=== PATIENT | male | born 1975 | race Caucasian/White ===

== ENCOUNTER 2016-11-26 10:51 | Emergency (ER) | payer SELFPAY ==
[2016-11-26 10:55] VITALS: BP 127/70; BMI 20.9
--- NOTE | 2016-11-26 11:30 | DR.GENAD ---
HPI - PCP Primary Care Physician: JOAN - HPI Comment HPI Comment: PAIN WORSE TODAY AND URINE OUTPUT IS DECREASE TODAY ALSO. - Complaint/Symptoms Chief Complaint Doctors Comments: LEFT LEG AND LT BACK PAIN, OFF AND ON TIMES 3 WEEKS. Chief Complaint:: PT. C/O LEFT LEG BURNING THAT RADIATES UP TO LEFT SIDE OF BACK. PT. STATES THE PAIN BEGAN ABOUT 3 WEEKS AGO BUT WORSENED THIS MORNING. PT. STATES HE HAS NOT BEEN ABLE TO URINATE SINCE YESTERDAY. - Nurses notes reviewed Nurses Notes Review: Yes - Source History Provided: Patient - Mode of Arrival Mode of Arrival: Ambulatory - Timing Onset of Chief Complaint: 11/25/16 Came on: Suddenly - Duration Duration: Constant Duration: Days - Severity Severity: Moderate PMH - PMH Past Medical History: Yes Past Medical History: Kidney Stones Past Surgical History: No Surgical History: No History - Family History History of Family Medical Conditions: No - Social History Does patient currently use any type of tobacco product: Yes Have you used tobacco products in the last 12 months: Yes Type of Tobacco Use: Cigarettes Does any household member use tobacco: No Alcohol Use: None Do you use any recreational Drugs:: No Lives With: Family Lives Where: Home - infectious screening In the last 2 months have you had wt loss of >10#?: NO Have you had fever, night sweats or hemotysis?: No Have you traveled outside the country in the last 6 months?: No Isolation: Standard ROS - Review of Systems Constitutional: No Symptoms Reported Eyes: No Symptoms Reported ENTM: No Symptoms Reported Respiratoy: No Symptoms Reported Cardiovascular: No Symptoms Reported Gastrointestinal/Abdominal: No Symptoms Reported Genitourinary: Other (DECREASE URINE OUTPUT.). negative: Dysuria, Frequency, Hematuria Neurological: No Symptoms Reported Musculoskeletal: Back Pain (LT BACK PAIN), Left, Leg Integumentary: No Symptoms Reported Hematologic/Lymphatic: No Symptoms Reported Endocrine: No Symptoms Reported All Other Systems: Reviewed and Negative PE - Vital Signs Vitals: Temperature 98.5 F Pulse Rate 107 Respiratory Rate 20 Blood Pressure 127/70 O2 Sat by Pulse Oximetry 95 - General Limitations: No Limitations General Appearance: Alert - Head Head Exam: Normal Inspection - Eyes Eye exam: Normal Appearance - ENT ENT Exam: Normal External Ear Exam External Ear Exam: Normal External Inspection TM/Canal Exam: Bilateral Normal Nose Exam: Normal Nose Exam Mouth Exam: Normal Inspection Throat Exam: Normal Inspection - Neck Neck Exam: Normal Inspection - Chest Chest Inspection: Symmetric Chest Wall Rise - Respiratory Respiratory Exam: Normal Lung Sounds Bilat Respiratory Exam: Bilateral Clear to Auscultation - Cardiovascular Cardiovascular Exam: Regular Rate, Normal Rhythm, Normal Heart Sounds - Abdominal Exam Abdominal Exam: Normal Bowel Sounds, Soft. negative: Tenderness - Extremities Extremities Exam: Normal Inspection - Back Back Exam: Normal Inspection - Neurologic Neurological Exam: Alert, Oriented X3 - Psychiatric Psychiatric Exam: Normal Affect, Normal Mood - Skin Skin Exam: Normal Color MDM - Differential Diagnosis Differential Diagnosis: BACK PAIN, UTI, KIDNEY STONE Course - Treatment Treatment: SEE ORDERS. - Education/Counseling Education/Counseling: Patient, Education Educated On: Treatment, Diagnosis, Needs for Follow Up ROR - Labs Reviewed Laboratory Results Reviewed?: Yes Result Diagrams: 11/26/16 11:45 11/26/16 11:45 Laboratory: WBC 13.3 X10^3/uL (3.6-10.0) H 11/26/16 11:45 RBC 4.48 X10^6/uL (4.7-6.0) L 11/26/16 11:45 Hgb 13.6 g/dL (13.5-18.0) 11/26/16 11:45 Hct 39.8 % (42.0-54.0) L 11/26/16 11:45 MCV 88.8 fL (80.0-100.0) 11/26/16 11:45 MCH 30.4 pg (27.0-34.0) 11/26/16 11:45 MCHC 34.2 g/dL (33.0-35.0) 11/26/16 11:45 RDW 13.0 % (11.6-16.5) 11/26/16 11:45 Plt Count 253 X10^3/uL (150.0-450.0) 11/26/16 11:45 MPV 7.2 fL (7.4-11.0) L 11/26/16 11:45 Neut % 79.1 % (42.0-75.0) H 11/26/16 11:45 Lymph % 11.0 % (21.0-51.0) L 11/26/16 11:45 Concho % 8.2 % (0.0-13.0) 11/26/16 11:45 Eos % 1.3 % (0.9-2.9) 11/26/16 11:45 Baso % 0.4 % (0.2-1.0) 11/26/16 11:45 Neut # 10.5 x10^3/uL (2.2-4.8) H 11/26/16 11:45 Lymph # 1.5 X10^3/uL (1.3-2.9) 11/26/16 11:45 Concho # 1.1 x10^3/uL (0.3-0.8) H 11/26/16 11:45 Eos # 0.2 x10^3/uL (0.0-0.2) 11/26/16 11:45 Baso # 0.1 X10^3/uL (0.0-0.1) 11/26/16 11:45 Absolute Nucleated RBC 0.1 /100WBC 11/26/16 11:45 Sodium 137 mmol/L (136-145) 11/26/16 11:45 Corrected Sodium TNP 11/26/16 11:45 Potassium 4.2 mmol/L (3.5-5.1) 11/26/16 11:45 Chloride 102 mmol/L (98-107) 11/26/16 11:45 Carbon Dioxide 32.4 mmol/L (21-32) H 11/26/16 11:45 BUN 13 mg/dL (7-18) 11/26/16 11:45 Creatinine 0.80 mg/dL (0.70-1.30) 11/26/16 11:45 Est GFR (MDRD) Af Amer > 60 (>60) 11/26/16 11:45 Est GFR (MDRD) Non-Af > 60 (>60) 11/26/16 11:45 Glucose 96 mg/dL (65-99) 11/26/16 11:45 Calcium 9.2 mg/dL (8.5-10.1) 11/26/16 11:45 Corrected Calcium TNP 11/26/16 11:45 Total Bilirubin 0.40 mg/dL (0.2-1.0) 11/26/16 11:45 AST 56 Units/L (15-37) H 11/26/16 11:45 ALT 54 Units/L (12-78) 11/26/16 11:45 Alkaline Phosphatase 160 Units/L (46-116) H 11/26/16 11:45 Total Protein 7.7 g/dL (6.4-8.2) 11/26/16 11:45 Albumin 3.6 g/dL (3.4-5.0) 11/26/16 11:45 Globulin 4.1 g/dL (2.5-4.5) 11/26/16 11:45 Albumin/Globulin Ratio 0.9 Ratio (1.1-2.1) L 11/26/16 11:45 Specimen Type Clean catch urine 11/26/16 13:35 Urine Color Yellow (YELLOW) 11/26/16 13:35 Urine Appearance Clear (CLEAR) 11/26/16 13:35 Urine pH 7.0 (5.0 - 8.0) 11/26/16 13:35 Ur Specific Beemer 1.015 (1.000-1.030) 11/26/16 13:35 Urine Protein 1+ (NEGATIVE) 11/26/16 13:35 Urine Glucose (UA) Negative (NEGATIVE) 11/26/16 13:35 Urine Ketones Negative (NEGATIVE) 11/26/16 13:35 Urine Occult Blood 1+ (NEGATIVE) 11/26/16 13:35 Urine Nitrite Negative (NEGATIVE) 11/26/16 13:35 Urine Bilirubin Negative (NEGATIVE) 11/26/16 13:35 Urine Urobilinogen 1+ (NORMAL) 11/26/16 13:35 Ur Leukocyte Esterase Negative (NEGATIVE) 11/26/16 13:35 Urine RBC Rare /HPF (NEGATIVE) 11/26/16 13:35 Urine WBC None seen /HPF (NEGATIVE) 11/26/16 13:35 Ur Squamous Epith Cells Rare /HPF (NEGATIVE) 11/26/16 13:35 Amorphous Sediment 1+ /HPF (NEGATIVE) 11/26/16 13:35 Urine Bacteria Negative /HPF (NEGATIVE) 11/26/16 13:35 Urine Mucus Few /HPF (NEGATIVE) 11/26/16 13:35 Ur Culture Indicated? No/not indicated 11/26/16 13:35 - XRAY XRAY Interpreted by: Radiologist XRAY Findings: REPORT DICSUSS WITH PATIENT. - Diagnosis Discharge Problem: Pulmonary nodule, Kidney stone Back pain Qualifiers: Back pain location: low back pain Chronicity: acute Back pain laterality: left Sciatica presence: without sciatica Qualified Code(s): M54.5 - Low back pain - Discharge Plan Disposition: 01 HOME, SELF-CARE Condition: Stable Prescriptions: Magnesium Citrate [CITROMA LIQUID (MAG CITRATE) *] 296 ml PO ONCE #296 ml Sodium Phosphate,Concho-Dibasic [Fleet Enema Six Pack] 1 bottle TN ONCE #1 beverly Tramadol HCl 50 mg PO TID #15 tablet - Follow ups/Referrals Follow ups/Referrals: NFD,None [Primary Care Provider] - 3 days LEANDRA GEE [STAFF PHYSICIAN] - 3 days - Instructions Instructions: Kidney Stones, [id number], Pulmonary Nodule, [id number], Pelvic Mass, Constipation, Adult, [id number] Additional Instructions: RETURN TO ED IF WORSE.
[2016-11-26] MEDS ORDERED: NS 1000 ML 1,000 ML IV ONE (11:31)
[2016-11-26] MEDS ORDERED: TORADOL 30 MG VIAL IVP ONE (11:31)
[2016-11-26] MEDS ORDERED: ZOFRAN INJ 4 MG VIAL IVP ONE (11:31)
[2016-11-26] MEDS ORDERED: NS 1000 ML 1,000 ML ONE (11:33)
[2016-11-26] MEDS ORDERED: TORADOL 30 MG VIAL ONE (11:34)
[2016-11-26] MEDS ORDERED: ZOFRAN INJ 4 MG VIAL ONE (11:34)
[2016-11-26 11:50] LABS: BASOPHILS # (AUTO) 0.1 X10^3/uL (0.0-0.1); BASOPHILS % (AUTO) 0.4 % (0.2-1.0); EOSINOPHILS # (AUTO) 0.2 x10^3/uL (0.0-0.2); EOSINOPHILS % (AUTO) 1.3 % (0.9-2.9); HEMATOCRIT 39.8 % (42.0-54.0); HEMOGLOBIN 13.6 g/dL (13.5-18.0); LYMPHOCYTES # (AUTO) 1.5 X10^3/uL (1.3-2.9); MEAN CORPUSCULAR HEMOGLOBIN 30.4 pg (27.0-34.0); MEAN CORPUSCULAR HGB CONC 34.2 g/dL (33.0-35.0); MEAN CORPUSCULAR VOLUME 88.8 fL (80.0-100.0); MEAN PLATELET VOLUME 7.2 fL (7.4-11.0); MONOCYTES # (AUTO) 1.1 x10^3/uL (0.3-0.8); MONOCYTES % (AUTO) 8.2 % (0.0-13.0); NEUTROPHILS # (AUTO) 10.5 x10^3/uL (2.2-4.8); NEUTROPHILS % (AUTO) 79.1 % (42.0-75.0); PLATELET COUNT 253 X10^3/uL (150.0-450.0); RED BLOOD COUNT 4.48 X10^6/uL (4.7-6.0); WHITE BLOOD COUNT 13.3 X10^3/uL (3.6-10.0)
[2016-11-26 12:01] LABS: ALANINE AMINOTRANSFERASE 54 Units/L (12-78); ALBUMIN 3.6 g/dL (3.4-5.0); ALKALINE PHOSPHATASE 160 Units/L (46-116); ASPARTATE AMINO TRANSFERASE 56 Units/L (15-37); BLOOD UREA NITROGEN 13 mg/dL (7-18); CALCIUM 9.2 mg/dL (8.5-10.1); CARBON DIOXIDE 32.4 mmol/L (21-32); CHLORIDE 102 mmol/L (98-107); GLUCOSE 96 mg/dL (65-99); SODIUM 137 mmol/L (136-145); TOTAL PROTEIN 7.7 g/dL (6.4-8.2); eGFR BLACK RACES > 60 (>60); eGFR NON BLACK RACES > 60 (>60)
--- NOTE | 2016-11-26 12:54 | CT ---
HISTORY: Right flank pain Study: CT abdomen and pelvis without contrast Comparison: None Technique: Multiple axial images of the abdomen and pelvis were obtained from the lung bases to the pubic symph ysis without the administration of IV contrast. Sagittal and coronal reformations were provided. Findings: There are multiple small noncalcified pulmonary nodules demonstrated in the visualized lung bases wi th the largest measuring approximately 6.6 millimeters in diameter peer there is no pleural effusion . There is a single small calculus in the lower pole of the right kidney and there are several sma ll left renal calculi. There is no hydronephrosis. The liver and spleen and pancreas and adrenal gla nds are unremarkable.. The gallbladder is unremarkable in its CT appearance. No significant mesente sravanthi lymphadenopathy or stranding can be observed. No free fluid or free air is seen within the abdo men. There is a 2.5 centimeter pelvic mass adjacent to the upper rectum left ventrally and there ar e multiple adjacent enlarged lymph node measuring over centimeter in diameter. I do not definitely i dentify para-aortic adenopathy peer there is no inguinal adenopathy. No bowel wall thickening or bow el dilatation is present. The colon is full of fecal material.. The urinary bladder is grossly unre markable. There are limbus vertebra at T12 and L2. IMPRESSION: 1. Bilateral renal calculi without hydronephrosis 2. Apparent extensive adenopathy in the pelvis surrounding the rectum. 3. Constipation 4. Multiple pulmonary nodules visualized at the lung bases suggesting the possibility of metastatic disease. Reported By:
[2016-11-26 13:50] LABS: BILIRUBIN,URINE NEGATIVE (NEGATIVE); BLOOD/HEMOGLOBIN,URINE 1+ (NEGATIVE); GLUCOSE, URINE NEGATIVE (NEGATIVE); KETONES,URINE NEGATIVE (NEGATIVE); LEUKOCYTE ESTERASE ,URINE NEGATIVE (NEGATIVE); NITRITES,URINE NEGATIVE (NEGATIVE); PROTEIN,URINE 1+ (NEGATIVE); UROBILINOGEN,URINE 1+ (NORMAL)
[2016-11-26 13:57] LABS: APPEARANCE,URINE CLEAR (CLEAR); COLOR,URINE YELLOW (YELLOW); RBC,URINE RARE /HPF (NEGATIVE); SQUAMOUS EPITHELIAL CELL,UR RARE /HPF (NEGATIVE)
[2016-11-26 13:58] LABS: AMORPHOUS SEDIMENT,UR 1+ /HPF (NEGATIVE); MUCUS,URINE FEW /HPF (NEGATIVE)
[2016-11-26 14:43] LABS: BACTERIA,URINE NEGATIVE /HPF (NEGATIVE)
== END 2016-11-26 13:42 | disposition home or self-care (01) ==
LOC: ER 11:20
DX: R91.1 Solitary pulmonary nodule (principal); N20.0 Calculus of kidney; M54.5 Low back pain; K59.09 Other constipation
CPT/HCPCS: 36415; 74176; 80053; 81001; 85025; 96365; 96374; 96375; 99283; A4222; J1885; J2405

== ENCOUNTER 2016-12-02 12:36 | Emergency (ER) | payer SELFPAY ==
[2016-12-02 12:41] VITALS: BP 126/71; BMI 19.7
[2016-12-02] MEDS ORDERED: MORPHINE SULFATE INJ 4 MG IVP ONE (13:03)
--- NOTE | 2016-12-02 13:03 | DR.GENAD ---
HPI - PCP Primary Care Physician: gee - Complaint/Symptoms Chief Complaint Doctors Comments: Patient denies any trauma or hematuria. He has a history of constipation has been taking citrate of magnesia x on bottle. Chief Complaint:: patient stated his testicls are hurting since yesterday. - Source History Provided: Patient - Mode of Arrival Mode of Arrival: Ambulatory - Timing Onset of Chief Complaint: 12/01/16 PMH - PMH Past Medical History: Yes Past Medical History: Kidney Stones Past Surgical History: No Surgical History: No History - Family History History of Family Medical Conditions: No - Social History Does patient currently use any type of tobacco product: Yes Have you used tobacco products in the last 12 months: Yes Type of Tobacco Use: Cigarettes How many years tobacco product used: 20 Does any household member use tobacco: No Do you use any recreational Drugs:: No Lives With: Family Lives Where: Home - infectious screening In the last 2 months have you had wt loss of >10#?: NO Have you had fever, night sweats or hemotysis?: No Have you traveled outside the country in the last 6 months?: No Isolation: Standard ROS - Review of Systems Eyes: No Symptoms Reported ENTM: No Symptoms Reported Respiratoy: No Symptoms Reported Cardiovascular: No Symptoms Reported Gastrointestinal/Abdominal: Abdominal Pain Genitourinary: No Symptoms Reported, Pain Neurological: No Symptoms Reported Musculoskeletal: No Symptoms Reported Integumentary: No Symptoms Reported Hematologic/Lymphatic: No Symptoms Reported Endocrine: No Symptoms Reported Psychiatric: No Symptoms Reported All Other Systems: Reviewed and Negative PE - Vital Signs Vitals: Temperature 98.6 F Pulse Rate 90 Respiratory Rate 16 Blood Pressure 126/71 O2 Sat by Pulse Oximetry 99 - General Limitations: No Limitations General Appearance: Alert, In No Apparent Distress - Head Head Exam: Normal Inspection, Atraumatic - Eyes Eye exam: Normal Appearance, PERRL, EOMI - ENT ENT Exam: Normal Exam External Ear Exam: Normal External Inspection TM/Canal Exam: Bilateral Normal Nose Exam: Normal Nose Exam Mouth Exam: Normal Inspection Throat Exam: Normal Inspection - Neck Neck Exam: Normal Inspection, Full ROM - Chest Chest Inspection: Normal Inspection - Respiratory Respiratory Exam: Normal Lung Sounds Bilat Respiratory Exam: Bilateral Clear to Auscultation - Cardiovascular Cardiovascular Exam: Regular Rate, Normal Rhythm - Abdominal Exam Abdominal Exam: Normal Inspection, Distention (suprapubic area), Tenderness Abdominal Tenderness: Suprapubic - Extremities Extremities Exam: Normal Inspection, Full ROM - Back Back Exam: Normal Inspection - Neurologic Neurological Exam: Alert, Oriented X3, CN II-XII Intact - Psychiatric Psychiatric Exam: Normal Affect, Normal Mood - Skin Skin Exam: Warm, Dry, Intact - Other Exam Other Exam: Rectum: Stool per vault ROR - Labs Reviewed Laboratory Results Reviewed?: Yes - XRAY XRAY Interpreted by: Radiologist (Scrotal US: negative) - Diagnosis Discharge Problem: Constipation Qualifiers: Constipation type: slow transit constipation Qualified Code(s): K59.01 - Slow transit constipation - Discharge Plan Condition: Stable - Follow ups/Referrals Follow ups/Referrals: RYLAND GEE [Primary Care Provider] - 3 days - Instructions
[2016-12-02] MEDS ORDERED: MORPHINE SULFATE INJ 4 MG ONE (13:08)
--- NOTE | 2016-12-02 14:53 | US ---
HISTORY: Testicular pain Study: Ultrasound of the scrotum/testicles Comparison: None Technique: Multiple mcbride scale and Doppler images of the right and left testicles were obtained Findings: The right testicle measures 4.9 x 2.1 x 2.9 cm. The left testicle measures 4.5 x 1.7 x 3.1 cm. Both testicles are relatively homogeneous in appearance without definite evidence of focal discrete mass. Vascular flow was demonstrated to both testicles. If symptoms persist recommend continued followup for further evaluation. IMPRESSION: 1. Unremarkable evaluation of the testicles. Reported By:
== END 2016-12-02 15:18 | disposition home or self-care (01) ==
LOC: ER 12:42
DX: K59.01 Slow transit constipation (principal)
CPT/HCPCS: 76870; 96365; 96374; 99283; A4222; J2270